=== PATIENT | male | born 2000 ===

== ENCOUNTER 2019-05-03 18:11 | Day surgery (SDC) | payer OTHER ==
[~2019-05-03 18:11] MED LIST: Dexamethasone 20 MG/5 ML VIAL ONE; Lidocaine 1% PF 5 ML VIAL ONE; Ondansetron PF 4 MG/2 ML Vial ONE; PROPOFOL 200 MG/20 ML VIAL ONE; Succinylcholine Chloride 20 MG/ML 10 ml SYRINGE FS ONE
[2019-05-03] MEDS ORDERED: Ondansetron PF 4 MG/2 ML Vial ONE (18:32)
[2019-05-03] MEDS ORDERED: Lidocaine 2% Jelly 5 ML TUBE ONE (19:11)
[2019-05-03] MEDS ORDERED: Midazolam HCl 2 mg/2 ml Vial ONE (19:11)
[2019-05-03] MEDS ORDERED: Fentanyl 100 MCG/2 ML VIAL ONE (19:11)
[2019-05-03] MEDS ORDERED: Ketorolac Tromethamine 30 MG/ML VIAL ONE (20:58)
--- NOTE | 2019-05-03 21:57 | CON ---
DATE OF CONSULTATION: 05/03/2019 REASON FOR CONSULTATION: Food bolus impaction. CONSULTING PROVIDER: HISTORY OF PRESENT ILLNESS: The patient is a 18-year-old male with no significant past medical history, presenting with complaints of dysphagia. He states that he was in his usual state of health until earlier this afternoon when he was sitting for the lunch and consumed a larger piece of brisket and experienced acute dysphagia characterized as the sensation of food got stuck at the level of the thyroid cartilage. He attempted to drink water and other various liquids, which then induced vomiting and did not relieve the obstruction. During the course of the afternoon, he went to work but then suddenly began to experience inability to tolerate his own secretions. With the event of this onset, he was then seen in the ER for further evaluation and diagnosed with esophageal food bolus impaction. Otherwise, he does admit to having increased seasonal allergies, but otherwise in addition to dysphagia and occasional odynophagia when attempted to consume any liquids, but otherwise denies any fevers, chills, hematemesis, melena, hematochezia, abdominal pain, GERD symptoms or recent weight loss. Of note, the patient has experienced this same sensation approximately 4 times over the last year, but on the previous occasions had been able to wash it down with some fluid. He also states that he has been having increased worsening dysphagia characterized as the food, having difficult time passing through the esophagus for the last 2 years. This would occur primarily with solids (meat and potatoes) with easy passage of liquids. He denies any overt acid reflux symptoms and has not been diagnosed with either acid reflux or eosinophilic esophagitis. REVIEW OF SYSTEMS: A 10-category review of systems was obtained with all responses negative except for the pertinent positives as listed in HPI. PAST MEDICAL HISTORY: None. PAST SURGICAL HISTORY: Eustachian ear tubes. FAMILY HISTORY: Maternal grandfather was diagnosed with pancreatic cancer in his sixties/seventies. Denies any history of esophageal cancer, gastric cancer, liver cancer or colon cancer. SOCIAL HISTORY: He does chew tobacco daily and drinks approximately one bottle of whiskey on the weekends. He denies any illicit drug use. OUTPATIENT MEDICATIONS: None. ALLERGIES: NO KNOWN DRUG ALLERGIES. PHYSICAL EXAMINATION: VITAL SIGNS: Temperature 98.3, pulse 100, blood pressure 131/80, respiratory rate 18, saturating 100% on room air. GENERAL: The patient is lying in bed, in no acute distress. Alert and oriented x4. HEENT: Normocephalic, atraumatic. NECK: Supple. No JVD or scleral icterus noted. CARDIOVASCULAR: Regular rate and rhythm with no discernible murmurs, gallops, or rubs. RESPIRATORY: Clear to auscultation bilaterally with no discernible wheezes or rales. ABDOMEN: Normoactive bowel sounds. Soft, nontender, and nondistended. EXTREMITIES: No cyanosis, clubbing, or edema. LABORATORY DATA: No current studies are available for review. IMAGING DATA: No current GI imaging is available for review. ASSESSMENT AND PLAN: The patient is a 18-year-old male with no significant past medical history, presenting with acute esophageal food bolus impaction. Esophageal food bolus impaction/dysphagia. The patient is presenting with a longstanding history of dysphagia characterized as the difficulty of swallowing primarily solid foods that has been present for the last 2 years. However, over the last year, he has been having increasing frequency of what seems to be impactions that would resolve with the ingestion of fluid. However, tonight, the patient ingested a large piece of brisket and experienced the food impaction again that did not resolve with ingestion of fluid and is currently having inability to tolerate his own secretions. At this time, it is consistent with an esophageal food bolus impaction with underlying etiologies including eosinophilic esophagitis, esophageal stricture formation, esophageal bar, esophageal dysmotility, and/or GI neoplasm. RECOMMENDATIONS: 1. Would continue patient on n.p.o. status in anticipation of urgent upper endoscopy, extraction of food bolus. 2. Would place the patient on omeprazole 40 mg daily after the procedure in light of worsening dysphagia type symptoms that could be either mediated by acid reflux or eosinophilic esophagitis. 3. Strongly encourage alcohol and chewing tobacco cessation. 4. Further recommendations to follow upper endoscopy. Job ID: [id number]
--- NOTE | 2019-05-03 22:05 | OP ---
DATE OF PROCEDURE: 05/03/2019 PROCEDURE PERFORMED: Esophagogastroduodenoscopy with biopsy, removal of food bolus impaction. INDICATION FOR PROCEDURE: Dysphagia with probable esophageal food bolus impaction. DESCRIPTION OF PROCEDURE: After the risks and benefits of the procedure were explained to the patient including risks of bleeding, infection, perforation, reactions to anesthesia, aspiration and/or pain, informed consent was obtained. The patient was then taken to the endoscopy suite, where general anesthesia was administered with endotracheal tube intubation. Once the patient was sedated and intubated, he was maneuvered into the left lateral decubitus position, followed by introduction of the standard gastroscope into the mouth with intubation of the esophagus, stomach, and the proximal small intestine with the findings listed below. The patient tolerated the procedure well with no immediate perioperative complications. Upon conclusion of the procedure, all equipment was removed from the patient, he was transferred to PACU in satisfactory condition. FINDINGS: Esophagus. Throughout the entire length of the esophagus, there was decreased peristalsis noted in addition to scattered nonobstructive fibrous rings as well as longitudinal furrows that extended all the way down the esophagus as well. A large food bolus was encountered at approximately 38 cm past the incisors and with gentle pressure, was able to be passed easily into the stomach at the gastroesophageal junction where the food bolus had been impacted. There was significant erythema, multiple erosions and mild oozing of blood within the region, but no overt ulceration. The mucosa in this region also exhibited mild polypoid type appearance again indicative of increased inflammation. Multiple biopsies were taken from the gastroesophageal junction for further evaluation. Given the lack of peristalsis and corrugated rings throughout the length of the esophagus, biopsies were also taken in the distal esophagus and proximal esophagus for evaluation of probable eosinophilic esophagitis. Otherwise, there was no evidence of mass lesions. Stomach. Normal-appearing mucosa was seen in the gastric cardia, fundus, body, greater curvature, antrum, and incisura. A large food bolus was seen on gastric retroflexion. Otherwise, there was no evidence of erosions, ulcerations, mass, lesions, or active/recent bleeding. Duodenum. Normal-appearing mucosa was seen in both the duodenal bulb and second portion of the duodenum. There was no evidence of erosions, ulcerations, mass, lesions, or active/recent bleeding. IMPRESSION: 1. Corrugation/felinization of the entire esophagus with longitudinal furrows and nonobstructive fibrous rings consistent with [id number] eosinophilic esophagitis. 2. Large food bolus seen at the gastroesophageal junction, able to be successfully advanced into the stomach with gentle pressure. 3. Increased mucosal erythema and minimal oozing of blood at the gastroesophageal junction consistent with inflammation. RECOMMENDATIONS: 1. We will follow up on the biopsy results with repeat upper endoscopy depending on pathology report. 2. Would place the patient on a liquid diet for the next 48 to 72 hours and advance to a soft diet until seen in the outpatient GI Clinic. 3. Would place the patient on omeprazole 40 mg daily, 30 to 45 minutes before dinner. 4. Acid reflux and/or treatment of the eosinophilic esophagitis. 5. Would strictly abstain from chewing tobacco and alcohol given possible chemical irritation of the esophagus in generating possible dysphagia. 6. Encourage adequate chewing of food before swallowing. 7. Would have the patient follow up in the GI clinic in approximately 2 to 3 weeks for re-evaluation of dysphagia at that time. Job ID: [id number]
== END 2019-05-03 21:42 | disposition home or self-care (01) ==
LOC: ERS 18:11 → SDC/OP 20:36
PROVIDERS: ATTEND Internal Medicine
PROC: 0DC58ZZ Extirpation of Matter from Esophagus, Via Natural or Artificial Opening Endoscopic (ICD-10-PCS; principal; 2019-05-03)
PROC: 0DB58ZX Excision of Esophagus, Via Natural or Artificial Opening Endoscopic, Diagnostic (ICD-10-PCS; principal; 2019-05-03)
PROC: 0DB38ZX Excision of Lower Esophagus, Via Natural or Artificial Opening Endoscopic, Diagnostic (ICD-10-PCS; principal; 2019-05-03)
DX: T18.128A Food in esophagus causing other injury, initial encounter (principal); K20.0 Eosinophilic esophagitis; F17.220 Nicotine dependence, chewing tobacco, uncomplicated
CPT/HCPCS: 88305; 88312; 88313; 96374; 96375; J1100; J1610; J1885; J2001; J2250; J2405; J2704; J3010